=== PATIENT | male | born 1950 | race Caucasian/White ===

== ENCOUNTER 2018-12-08 10:16 | Inpatient (IN) | payer MEDICAID ==
[~2018-12-08] VITALS: Ht 162.6 cm; Wt 68.0 kg
[~2018-12-08 10:16] MED LIST: AMA1 PO; ASPI-1158 PO; BENA20TA10 PO; CALC-25 PO; CALC667C PO; FURO20TA4 PO; GEMF600T4 PO; METO25TA6 PO; NEPVIT PO; OMEP20CA10 PO; PHEN100C4 PO; REN800 PO
[2018-12-08 16:25] LABS: BASOPHILS % 0.7 % (0.0-2.0); EOSINOPHILS % 3.3 % (0.0-5.0); HEMATOCRIT. 35.9 % (42.0-52.0); HEMOGLOBIN. 11.7 g/dL (14.0-18.0); LYMPHOCYTES % 13.6 % (20.0-50.0); MEAN CORPUSCULAR VOLUME 89.2 fL (80.0-94.0); MONOCYTES % 3.5 % (2.0-8.0); NEUTROPHILS % 78.9 % (40.0-76.0); PLATELET 199 x1000/uL (130-400); RED BLOOD CELL COUNT 4.02 mill/uL (4.7-6.1); RED CELL DISTRIBUTION WIDTH 14.4 % (11.6-14.6)
[2018-12-08 16:31] LABS: CHLORIDE 98 mEq/L (98-107); PARTIAL THROMBOPLASTIN TIME 33.4 sec (23.4-31.0); PROTHROMBIN TIME 9.7 sec (9.1-11.1)
[2018-12-08] MEDS ORDERED: SODIUM POLYSTYRENE SULFONATE 15 G/60 ML BOT PO ONE (17:00)
[2018-12-08] MEDS ORDERED: ONDANSETRON HCL 4MG/2ML INJ IV PRN (19:30)
[2018-12-08] MEDS ORDERED: ACETAMINOPHEN 325MG TABLET PO PRN (19:30)
[2018-12-08] MEDS ORDERED: HYDROCODONE/ACETAMINOPHEN 5/325MG TABLET PO PRN (19:30)
[2018-12-08] MEDS ORDERED: LORAZEPAM 0.5MG TABLET PO PRN (19:30)
[2018-12-08] MEDS ORDERED: CLONIDINE 0.1MG TABLET PO PRN (19:30)
[2018-12-08] MEDS ORDERED: IPRATROPIUM/ALBUTEROL 0.5-3(2.5)MG/3ML NEB INH PRN (19:30)
[2018-12-09] VITALS (9 sets, daily range): BP systolic 102–200; BP diastolic 39–83
[2018-12-09] MEDS ORDERED: DEXTROSE 50% WATER 50ML SYRINGE IV PRN (04:45)
[2018-12-09] MEDS: PHENYTOIN SODIUM EXTENDED 100MG CAPSULE PO SCH ×4 (06:00→22:00)
[2018-12-09] MEDS: BLOOD SUGAR DIAGNOSTIC STRIP TEST SCH ×4 (08:17→21:00)
[2018-12-09] MEDS: INSULIN LISPRO 100 UNITS/ML SUBCUT SCH ×4 (08:58→21:24)
[2018-12-09 09:22] LABS: BASOPHILS % 0.6 % (0.0-2.0); EOSINOPHILS % 1.7 % (0.0-5.0); HEMATOCRIT. 34.2 % (42.0-52.0); LYMPHOCYTES % 12.4 % (20.0-50.0); MEAN CORPUSCULAR HEMOGLOBIN 28.5 pg (28.0-32.0); MEAN CORPUSCULAR VOLUME 88.7 fL (80.0-94.0); MEAN PLATELET VOLUME 8.4 fl (7.4-10.4); MONOCYTES % 3.9 % (2.0-8.0); NEUTROPHILS % 81.4 % (40.0-76.0); PLATELET 183 x1000/uL (130-400); RED BLOOD CELL COUNT 3.85 mill/uL (4.7-6.1); RED CELL DISTRIBUTION WIDTH 14.3 % (11.6-14.6)
[2018-12-09 10:19] LABS: PHOSPHORUS 3.3 mg/dL (2.5-4.9)
[2018-12-09] MEDS ORDERED: HEPARIN SODIUM 1,000 UNIT/1ML VIAL IV NR (16:09)
[2018-12-09] MEDS ORDERED: HEPARIN 5000 UNITS/ML VIAL SUBCUT SCH (21:00)
[2018-12-09] MEDS: HEPARIN 5000 UNITS/ML VIAL SUBCUT SCH (21:14)
[2018-12-10] VITALS (8 sets, daily range): BP systolic 121–149; BP diastolic 54–76
[2018-12-10] MEDS: PHENYTOIN SODIUM EXTENDED 100MG CAPSULE PO SCH ×2 (06:00→12:59)
[2018-12-10 07:08] LABS: BASOPHILS % 0.5 % (0.0-2.0); EOSINOPHILS % 2.3 % (0.0-5.0); HEMATOCRIT. 30.3 % (42.0-52.0); HEMOGLOBIN. 9.9 g/dL (14.0-18.0); LYMPHOCYTES % 13.8 % (20.0-50.0); MEAN CORPUSCULAR HEMOGLOBIN 28.9 pg (28.0-32.0); MEAN CORPUSCULAR VOLUME 88.2 fL (80.0-94.0); MEAN PLATELET VOLUME 8.5 fl (7.4-10.4); MONOCYTES % 5.2 % (2.0-8.0); NEUTROPHILS % 78.2 % (40.0-76.0); PLATELET 170 x1000/uL (130-400); RED BLOOD CELL COUNT 3.44 mill/uL (4.7-6.1); RED CELL DISTRIBUTION WIDTH 14.4 % (11.6-14.6)
[2018-12-10] MEDS: BLOOD SUGAR DIAGNOSTIC STRIP TEST SCH ×2 (07:30→12:30)
[2018-12-10] MEDS ORDERED: OMEPRAZOLE 20MG CAPSULE EXTENDED RELEASE PO SCH (07:30)
[2018-12-10] MEDS: INSULIN LISPRO 100 UNITS/ML SUBCUT SCH ×2 (08:00→13:39)
[2018-12-10] MEDS: HEPARIN 5000 UNITS/ML VIAL SUBCUT SCH (08:39)
== END 2018-12-10 17:45 | disposition home or self-care (01) | DRG 466 ==
LOC: ER 10:39 → 5EST 17:56 → ENRESERV 12-09 02:19
PROVIDERS: ADMIT Internal Medicine; ATTEND Internal Medicine
PROC: 5A1D70Z Performance of Urinary Filtration, Intermittent, Less than 6 Hours Per Day (ICD-10-PCS; principal; 2018-12-09)
PROC: 06H033Z Insertion of Infusion Device into Inferior Vena Cava, Percutaneous Approach (ICD-10-PCS; 2018-12-09)
PROC: B519ZZA Fluoroscopy of Inferior Vena Cava, Guidance (ICD-10-PCS; 2018-12-09)
PROC: 06PYX3Z Removal of Infusion Device from Lower Vein, External Approach (ICD-10-PCS; 2018-12-09)
DX: T82.898A Other specified complication of vascular prosthetic devices, implants and grafts, initial encounter (principal); I12.0 Hypertensive chronic kidney disease with stage 5 chronic kidney disease or end stage renal disease; E11.22 Type 2 diabetes mellitus with diabetic chronic kidney disease; E11.40 Type 2 diabetes mellitus with diabetic neuropathy, unspecified; N18.6 End stage renal disease; E87.1 Hypo-osmolality and hyponatremia; E78.5 Hyperlipidemia, unspecified; E87.5 Hyperkalemia; D63.8 Anemia in other chronic diseases classified elsewhere; E11.65 Type 2 diabetes mellitus with hyperglycemia; I16.0 Hypertensive urgency; G40.909 Epilepsy, unspecified, not intractable, without status epilepticus; Y83.8 Other surgical procedures as the cause of abnormal reaction of the patient, or of later complication, without mention of misadventure at the time of the procedure; Z89.512 Acquired absence of left leg below knee; Z99.2 Dependence on renal dialysis; Z87.891 Personal history of nicotine dependence; Y92.89 Other specified places as the place of occurrence of the external cause; Z88.1 Allergy status to other antibiotic agents; Z79.82 Long term (current) use of aspirin; Z79.899 Other long term (current) drug therapy; Z89.421 Acquired absence of other right toe(s); T82.41XA Breakdown (mechanical) of vascular dialysis catheter, initial encounter
CPT/HCPCS: 36415; 36569; 36581; 75825; 77001; 80048; 82962; 83036; 83735; 83880; 84100; 84484; 93005; 93970; 99285; C1750; C1769; J1642; J1644; J1815; J7620

== ENCOUNTER 2018-12-28 12:08 | Inpatient (IN) | payer MEDICAID ==
[~2018-12-28] VITALS: Ht 165.1 cm; Wt 68.5 kg
[~2018-12-28 12:08] MED LIST changes: -ASPI-1158 PO; -GEMF600T4 PO
[2018-12-28 16:41] LABS: BASOPHILS % 0.8 % (0.0-2.0); EOSINOPHILS % 3.8 % (0.0-5.0); HEMATOCRIT. 33.8 % (42.0-52.0); HEMOGLOBIN. 11.1 g/dL (14.0-18.0); LYMPHOCYTES % 17.9 % (20.0-50.0); MEAN CORPUSCULAR HEMOGLOBIN 29.2 pg (28.0-32.0); MEAN CORPUSCULAR VOLUME 88.9 fL (80.0-94.0); MEAN PLATELET VOLUME 7.8 fl (7.4-10.4); NEUTROPHILS % 72.5 % (40.0-76.0); PLATELET 202 x1000/uL (130-400); RED CELL DISTRIBUTION WIDTH 14.7 % (11.6-14.6)
[2018-12-28 16:48] LABS: CHLORIDE 99 mEq/L (98-107)
[2018-12-28 16:49] LABS: PROTHROMBIN TIME 9.9 sec (9.1-11.1)
[2018-12-28] MEDS ORDERED: IPRATROPIUM/ALBUTEROL 0.5-3(2.5)MG/3ML NEB INH PRN (19:45)
[2018-12-28] MEDS ORDERED: DOCUSATE SODIUM 100MG CAPSULE PO PRN (19:45)
[2018-12-28] MEDS ORDERED: ONDANSETRON HCL 4MG/2ML INJ IV PRN (19:45)
[2018-12-28] MEDS ORDERED: GUAIFENESIN 200MG/10ML SUGAR FREE UDC PO PRN (19:45)
[2018-12-28] MEDS ORDERED: CLONIDINE 0.1MG TABLET PO PRN (19:45)
[2018-12-28] MEDS ORDERED: ACETAMINOPHEN 325MG TABLET PO PRN (19:45)
[2018-12-28] MEDS ORDERED: DIPHENHYDRAMINE 50MG/ML VIAL IV PRN (19:45)
[2018-12-28] MEDS ORDERED: MAGNESIUM/ALUMINUM HYDROXIDE/SIMETHICONE 30ML UDC PO PRN (19:45)
[2018-12-28] MEDS ORDERED: HYDROCODONE/ACETAMINOPHEN 5/325MG TABLET PO PRN (19:45)
[2018-12-28 20:27] LABS: PHOSPHORUS 7.7 mg/dL (2.5-4.9)
[2018-12-28 20:57] LABS: HEPATITIS B SURFACE ANTIGEN NEGATIVE
[2018-12-28 21:27] LABS: HEPATITIS A AB IGM NEGATIVE (NEGATIVE)
[2018-12-28 23:20] VITALS: BP 151/55
[2018-12-28 23:21] VITALS: BP 151/55
[2018-12-29] VITALS (20 sets, daily range): BP systolic 134–207; BP diastolic 58–82
[2018-12-29] MEDS ORDERED: CLON0.1T PO (01:50)
[2018-12-29] MEDS ORDERED: DEXTROSE 50% WATER 50ML SYRINGE IV PRN (02:00)
[2018-12-29] MEDS: BLOOD SUGAR DIAGNOSTIC STRIP TEST SCH ×2 (06:16→13:02)
[2018-12-29] MEDS: INSULIN LISPRO 100 UNITS/ML SUBCUT SCH ×2 (07:03→13:11)
[2018-12-29] MEDS ORDERED: CEFAZOLIN 1000MG PREMIX 50 ML IV ONE ×2 (07:37→07:45)
[2018-12-29] MEDS ORDERED: SODIUM BICARBONATE 4% (2.4MEQ) 5ML VIAL IV ONE (07:37)
[2018-12-29] MEDS ORDERED: LIDOCAINE HCL 1% 20ML VIAL (Pyxis) INJ ONE (07:37)
[2018-12-29] MEDS ORDERED: FENTANYL CITRATE/PF 50MCG/ML 2ML VIAL ONE ×2 (07:38→09:06)
[2018-12-29 07:42] LABS: BASOPHILS % 1.3 % (0.0-2.0); EOSINOPHILS % 5.6 % (0.0-5.0); HEMATOCRIT. 33.1 % (42.0-52.0); HEMOGLOBIN. 10.6 g/dL (14.0-18.0); LYMPHOCYTES % 21.2 % (20.0-50.0); MEAN CORPUSCULAR HEMOGLOBIN 29.1 pg (28.0-32.0); MEAN CORPUSCULAR VOLUME 90.4 fL (80.0-94.0); MEAN PLATELET VOLUME 8.1 fl (7.4-10.4); MONOCYTES % 5.7 % (2.0-8.0); NEUTROPHILS % 66.2 % (40.0-76.0); PLATELET 186 x1000/uL (130-400); RED BLOOD CELL COUNT 3.66 mill/uL (4.7-6.1); RED CELL DISTRIBUTION WIDTH 14.9 % (11.6-14.6)
[2018-12-29 08:18] LABS: CHLORIDE 100 mEq/L (98-107)
[2018-12-29 08:25] LABS: LDL CHOLESTEROL 69 mg/dL (5-100)
[2018-12-29 08:27] LABS: HDL CHOLESTEROL 37 mg/dL (40-59)
[2018-12-29] MEDS ORDERED: IOHEXOL-300 50 ML BOTTLE IV ONE (08:41)
[2018-12-29] MEDS ORDERED: FENTANYL CITRATE/PF 50MCG/ML 2ML VIAL IV ONE (08:45)
[2018-12-29] MEDS ORDERED: CALCIUM ACETATE 667MG CAPSULE PO SCH (13:00)
[2018-12-29] MEDS ORDERED: EPOETIN ALFA 4000UNITS/ML VIAL SUBCUT SCH (21:00)
[2018-12-30 08:18] LABS: HIV SCREEN 4G Non Reactive (Non Reactive)
== END 2018-12-29 20:05 | disposition home or self-care (01) | DRG 182 ==
LOC: ER 12:08 → 8WST 17:36 → EDBEDREQTM 17:40 → EDBEDREQ 17:40 → ENRESERV 22:33
PROVIDERS: ADMIT Internal Medicine; ATTEND Internal Medicine
PROC: B5191ZZ Fluoroscopy of Inferior Vena Cava using Low Osmolar Contrast (ICD-10-PCS; principal; 2018-12-29)
PROC: 06703ZZ Dilation of Inferior Vena Cava, Percutaneous Approach (ICD-10-PCS; 2018-12-29)
PROC: B51V1ZZ Fluoroscopy of Other Veins using Low Osmolar Contrast (ICD-10-PCS; 2018-12-29)
PROC: 067M3ZZ Dilation of Right Femoral Vein, Percutaneous Approach (ICD-10-PCS; 2018-12-29)
PROC: 5A1D70Z Performance of Urinary Filtration, Intermittent, Less than 6 Hours Per Day (ICD-10-PCS; 2018-12-29)
PROC: 06HM33Z Insertion of Infusion Device into Right Femoral Vein, Percutaneous Approach (ICD-10-PCS; 2018-12-29)
PROC: 06PYX3Z Removal of Infusion Device from Lower Vein, External Approach (ICD-10-PCS; 2018-12-29)
DX: T82.9XXA Unspecified complication of cardiac and vascular prosthetic device, implant and graft, initial encounter (principal); E11.22 Type 2 diabetes mellitus with diabetic chronic kidney disease; I12.0 Hypertensive chronic kidney disease with stage 5 chronic kidney disease or end stage renal disease; T82.818A Embolism due to vascular prosthetic devices, implants and grafts, initial encounter; N18.6 End stage renal disease; Y83.8 Other surgical procedures as the cause of abnormal reaction of the patient, or of later complication, without mention of misadventure at the time of the procedure; D64.9 Anemia, unspecified; E78.00 Pure hypercholesterolemia, unspecified; Z79.4 Long term (current) use of insulin; Z89.512 Acquired absence of left leg below knee; Z99.2 Dependence on renal dialysis; Y92.89 Other specified places as the place of occurrence of the external cause; Z88.1 Allergy status to other antibiotic agents
CPT/HCPCS: 36415; 36569; 36589; 37248; 71045; 75825; 76937; 77001; 80061; 82962; 83036; 83735; 84100; 84443; 86705; 86709; 86803; 87070; 87186; 87340; 87389; 93970; 99152; 99153; 99285; C1725; C1766; C1769; J0690; J1642; J1815; J3010; J3490; J7050; Q9967; G0500

== ENCOUNTER 2019-03-12 10:25 | Inpatient (IN) | payer MEDICAID ==
[~2019-03-12] VITALS: Ht 165.1 cm; Wt 75.4 kg
[~2019-03-12 10:25] MED LIST changes: -AMA1 PO; +CLON0.1T PO; -FURO20TA4 PO; -METO25TA6 PO; -NEPVIT PO; -OMEP20CA10 PO; -PHEN100C4 PO; -REN800 PO
[2019-03-12 13:25] LABS: BASOPHILS % 0.6 % (0.0-2.0); EOSINOPHILS % 2.8 % (0.0-5.0); HEMOGLOBIN. 12.1 g/dL (14.0-18.0); MEAN CORPUSCULAR HEMOGLOBIN 29.5 pg (28.0-32.0); MEAN CORPUSCULAR VOLUME 90.3 fL (80.0-94.0); MONOCYTES % 4.2 % (2.0-8.0); NEUTROPHILS % 82.4 % (40.0-76.0); PLATELET 209 x1000/uL (130-400); RED CELL DISTRIBUTION WIDTH 17.9 % (11.6-14.6)
[2019-03-12 13:30] LABS: CHLORIDE 104 mEq/L (98-107); PROTHROMBIN TIME 10.1 sec (9.6-11.0)
[2019-03-12 13:37] LABS: PHOSPHORUS 4.8 mg/dL (2.5-4.9)
[2019-03-12] MEDS ORDERED: SODIUM BICARBONATE 4% (2.4MEQ) 5ML VIAL IV ONE (13:39)
[2019-03-12] MEDS ORDERED: LIDOCAINE HCL 1% 20ML VIAL (Pyxis) INJ ONE (13:39)
[2019-03-12] MEDS ORDERED: CALCIUM GLUCONATE 1,000 MG in DEXT 5% WATER 100 ML IV ONE (14:30)
[2019-03-12] MEDS ORDERED: SODIUM BICARBONATE 8.4% 1 MEQ/ML 50ML SYR IV ONE (14:30)
[2019-03-12] MEDS ORDERED: FUROSEMIDE 100MG/10ML VIAL IV ONE (14:30)
[2019-03-12] MEDS ORDERED: DEXTROSE 50% WATER 50ML SYRINGE IV ONE (14:30)
[2019-03-12] MEDS ORDERED: INSULIN REGULAR (HUMULIN R) 300UNITS/3ML IV ONE (14:30)
[2019-03-12] MEDS ORDERED: ALBUTEROL (0.083%) 2.5MG/3ML NEB HHN SCH (14:30)
[2019-03-12] MEDS ORDERED: ACETAMINOPHEN 325MG TABLET PO ONE (15:15)
[2019-03-12] MEDS ORDERED: DOCUSATE SODIUM 100MG CAPSULE PO PRN (16:45)
[2019-03-12] MEDS ORDERED: MAGNESIUM/ALUMINUM HYDROXIDE/SIMETHICONE 30ML UDC PO PRN (16:45)
[2019-03-12] MEDS ORDERED: IPRATROPIUM/ALBUTEROL 0.5-3(2.5)MG/3ML NEB INH PRN (16:45)
[2019-03-12] MEDS ORDERED: HYDROCODONE/ACETAMINOPHEN 5/325MG TABLET PO PRN (16:45)
[2019-03-12] MEDS ORDERED: ONDANSETRON HCL 4MG/2ML INJ IV PRN (16:45)
[2019-03-12] MEDS ORDERED: DIPHENHYDRAMINE 50MG/ML VIAL IV PRN (16:45)
[2019-03-12] MEDS ORDERED: GUAIFENESIN 200MG/10ML SUGAR FREE UDC PO PRN (16:45)
[2019-03-12 17:22] LABS: PHOSPHORUS 5.1 mg/dL (2.5-4.9)
[2019-03-12] MEDS: CLONIDINE 0.1MG TABLET PO PRN (20:47)
[2019-03-13] VITALS (13 sets, daily range): BP systolic 138–206; BP diastolic 52–91
[2019-03-13 00:10] LABS: CREATINE KINASE MB FRACTION 5.3 ng/mL (0.5-3.6)
[2019-03-13] MEDS ORDERED: DEXTROSE 50% WATER 50ML SYRINGE IV PRN (04:30)
[2019-03-13 06:06] LABS: BASOPHILS % 0.7 % (0.0-2.0); EOSINOPHILS % 2.8 % (0.0-5.0); HEMATOCRIT. 38.1 % (42.0-52.0); HEMOGLOBIN. 12.2 g/dL (14.0-18.0); LYMPHOCYTES % 9.1 % (20.0-50.0); MEAN CORPUSCULAR HEMOGLOBIN 29.2 pg (28.0-32.0); MEAN CORPUSCULAR VOLUME 91.4 fL (80.0-94.0); MONOCYTES % 4.2 % (2.0-8.0); NEUTROPHILS % 83.2 % (40.0-76.0); RED BLOOD CELL COUNT 4.17 mill/uL (4.7-6.1); RED CELL DISTRIBUTION WIDTH 17.7 % (11.6-14.6)
[2019-03-13 06:43] LABS: CHLORIDE 104 mEq/L (98-107)
[2019-03-13 07:03] LABS: CREATINE KINASE 165 IU/L (39-308); HDL CHOLESTEROL 64 mg/dL (40-59)
[2019-03-13 07:05] LABS: LDL CHOLESTEROL 34 mg/dL (5-100)
[2019-03-13] MEDS: BLOOD SUGAR DIAGNOSTIC STRIP TEST SCH ×4 (07:40→23:18)
[2019-03-13] MEDS ORDERED: SODIUM BICARBONATE 4% (2.4MEQ) 5ML VIAL IV ONE (08:07)
[2019-03-13] MEDS ORDERED: LIDOCAINE HCL 1% 20ML VIAL (Pyxis) INJ ONE (08:07)
[2019-03-13] MEDS ORDERED: FENTANYL CITRATE/PF 50MCG/ML 2ML VIAL ONE (08:08)
[2019-03-13] MEDS: INSULIN LISPRO 100 UNITS/ML SUBCUT SCH ×4 (08:10→23:18)
[2019-03-13] MEDS ORDERED: CEFAZOLIN 1000MG PREMIX 50 ML IV SCH (08:15)
[2019-03-13] MEDS ORDERED: IOHEXOL-300 50 ML BOTTLE IV ONE (08:45)
[2019-03-13] MEDS ORDERED: INSULIN REGULAR (HUMULIN R) UD 100 UNITS/ML SYR IV SCH (10:00)
[2019-03-13] MEDS ORDERED: DEXTROSE 50% WATER 50ML SYRINGE IV SCH (10:00)
[2019-03-13] MEDS: ACETAMINOPHEN 325MG TABLET PO PRN (10:33)
[2019-03-13 11:19] LABS: PLATELET 175 x1000/uL (130-400)
[2019-03-14] VITALS: BP 139/56
[2019-03-14 04:00] VITALS: BP 145/54
[2019-03-14 06:45] LABS: BASOPHILS % 1.3 % (0.0-2.0); EOSINOPHILS % 2.9 % (0.0-5.0); HEMATOCRIT. 32.9 % (42.0-52.0); HEMOGLOBIN. 10.6 g/dL (14.0-18.0); LYMPHOCYTES % 10.9 % (20.0-50.0); MEAN CORPUSCULAR HEMOGLOBIN 29.3 pg (28.0-32.0); MEAN CORPUSCULAR VOLUME 90.9 fL (80.0-94.0); MEAN PLATELET VOLUME 7.8 fl (7.4-10.4); MONOCYTES % 5.5 % (2.0-8.0); NEUTROPHILS % 79.4 % (40.0-76.0); PLATELET 159 x1000/uL (130-400); RED BLOOD CELL COUNT 3.62 mill/uL (4.7-6.1); RED CELL DISTRIBUTION WIDTH 17.8 % (11.6-14.6)
[2019-03-14] MEDS: BLOOD SUGAR DIAGNOSTIC STRIP TEST SCH ×4 (06:57→21:28)
[2019-03-14] MEDS: INSULIN LISPRO 100 UNITS/ML SUBCUT SCH ×4 (07:02→21:59)
[2019-03-14 08:00] VITALS: BP 141/59
[2019-03-14 12:00] VITALS: BP 155/81
[2019-03-14 16:00] VITALS: BP 172/75
[2019-03-14] MEDS ORDERED: SODIUM POLYSTYRENE SULFONATE 15 G/60 ML BOT PO NR (16:30)
[2019-03-14] MEDS: ACETAMINOPHEN 325MG TABLET PO PRN (17:12)
[2019-03-14] MEDS: CLONIDINE 0.1MG TABLET PO PRN (18:17)
[2019-03-14 20:28] VITALS: BP 143/54
[2019-03-15] VITALS (8 sets, daily range): BP systolic 116–169; BP diastolic 40–71
[2019-03-15] MEDS: ACETAMINOPHEN 325MG TABLET PO PRN ×2 (00:53→23:19)
[2019-03-15] MEDS: BLOOD SUGAR DIAGNOSTIC STRIP TEST SCH ×4 (07:40→21:00)
[2019-03-15] MEDS: INSULIN LISPRO 100 UNITS/ML SUBCUT SCH ×4 (08:10→21:00)
[2019-03-15] MEDS ORDERED: LIDOCAINE HCL/PF 1% 10 MG/ML 5ML VIAL ONE (10:29)
[2019-03-15] MEDS ORDERED: CEFAZOLIN 1000MG PREMIX 50 ML IV NR (10:30)
[2019-03-15] MEDS ORDERED: LIDOCAINE HCL/EPINEPHRINE 1%-EPI 1:100,000 20 ML VIAL ONE (10:30)
[2019-03-15] MEDS ORDERED: LIDOCAINE HCL 1% 20ML VIAL (Pyxis) INJ ONE (10:31)
[2019-03-15] MEDS ORDERED: SODIUM BICARBONATE 4% (2.4MEQ) 5ML VIAL IV ONE (10:32)
[2019-03-15] MEDS ORDERED: CEFAZOLIN 1000MG PREMIX 50 ML IV ONE (10:53)
[2019-03-15] MEDS ORDERED: FENTANYL CITRATE/PF 50MCG/ML 2ML VIAL ONE (10:53)
[2019-03-15] MEDS ORDERED: IOHEXOL-300 100 ML BOTTLE ONE (10:58)
[2019-03-15] MEDS ORDERED: HEPARIN 1000 UNITS/ML 10ML ONE (11:29)
[2019-03-15] MEDS ORDERED: IOHEXOL-300 50 ML BOTTLE IV ONE (12:25)
[2019-03-16] VITALS (8 sets, daily range): BP systolic 95–193; BP diastolic 33–69
[2019-03-16] MEDS: BLOOD SUGAR DIAGNOSTIC STRIP TEST SCH ×4 (07:12→20:45)
[2019-03-16] MEDS: INSULIN LISPRO 100 UNITS/ML SUBCUT SCH ×4 (08:10→20:45)
[2019-03-16] MEDS: ACETAMINOPHEN 325MG TABLET PO PRN ×2 (09:13→23:37)
[2019-03-16] MEDS ORDERED: ALTEPLASE 100MG/VIAL ITC ONE ×2 (10:15)
[2019-03-16] MEDS ORDERED: ALTEPLASE 2MG/VIAL ITC SCH (11:00)
[2019-03-16] MEDS ORDERED: GENTAMICIN 80MG PREMIX 100 ML IV NR (18:00)
[2019-03-17] VITALS: BP 100/35
[2019-03-17 04:00] VITALS: BP 110/38
[2019-03-17 05:45] LABS: HEMATOCRIT. 27.8 % (42.0-52.0); MEAN CORPUSCULAR HEMOGLOBIN 28.9 pg (28.0-32.0); MEAN CORPUSCULAR VOLUME 89.6 fL (80.0-94.0); MEAN PLATELET VOLUME 9.5 fl (7.4-10.4); PLATELET 103 x1000/uL (130-400); RED CELL DISTRIBUTION WIDTH 17.4 % (11.6-14.6)
[2019-03-17] MEDS: BLOOD SUGAR DIAGNOSTIC STRIP TEST SCH ×4 (07:40→20:25)
[2019-03-17 08:00] VITALS: BP 126/35
[2019-03-17] MEDS: INSULIN LISPRO 100 UNITS/ML SUBCUT SCH ×4 (08:10→20:25)
[2019-03-17 12:00] VITALS: BP 137/38
[2019-03-17] MEDS: ACETAMINOPHEN 325MG TABLET PO PRN (13:17)
[2019-03-17 13:26] LABS: PLATELET ESTIMATE SLIGHTLY DECREASED
[2019-03-17 16:00] VITALS: BP 114/34
[2019-03-17 20:00] VITALS: BP 123/40
[2019-03-18] VITALS: BP 126/45
[2019-03-18 04:00] VITALS: BP 123/49
[2019-03-18] MEDS ORDERED: CEFEPIME 1,000 MG in DEXTROSE 5% WATER 50 ML IV NR (05:00)
[2019-03-18] MEDS: METRONIDAZOLE 500 MG PREMIX 100 ML IV SCH ×2 (05:26→21:34)
[2019-03-18 06:58] LABS: BASOPHILS % 0.4 % (0.0-2.0); EOSINOPHILS % 0.4 % (0.0-5.0); HEMATOCRIT. 26.2 % (42.0-52.0); HEMOGLOBIN. 8.5 g/dL (14.0-18.0); LYMPHOCYTES % 7.7 % (20.0-50.0); MEAN CORPUSCULAR HEMOGLOBIN 28.9 pg (28.0-32.0); MEAN CORPUSCULAR VOLUME 89.6 fL (80.0-94.0); MEAN PLATELET VOLUME 9.4 fl (7.4-10.4); MONOCYTES % 5.6 % (2.0-8.0); NEUTROPHILS % 85.9 % (40.0-76.0); PLATELET 110 x1000/uL (130-400); RED BLOOD CELL COUNT 2.93 mill/uL (4.7-6.1); RED CELL DISTRIBUTION WIDTH 17.1 % (11.6-14.6)
[2019-03-18 07:29] LABS: GENTAMICIN RANDOM 2.2 ug/mL
[2019-03-18 08:00] VITALS: BP 96/39
[2019-03-18] MEDS: BLOOD SUGAR DIAGNOSTIC STRIP TEST SCH ×4 (08:33→21:35)
[2019-03-18] MEDS: INSULIN LISPRO 100 UNITS/ML SUBCUT SCH ×4 (08:40→21:00)
[2019-03-18] MEDS ORDERED: CEFEPIME 2,000 MG in DEXT 5% WATER 100 ML IV SCH (09:00)
[2019-03-18] MEDS ORDERED: LOPERAMIDE HCL 2MG CAPSULE PO PRN (10:45)
[2019-03-18 12:00] VITALS: BP 121/34
[2019-03-18] MEDS ORDERED: LOPERAMIDE HCL 2MG CAPSULE PO NR (12:00)
[2019-03-18 16:00] VITALS: BP 116/35
[2019-03-18] MEDS: CEFTRIAXONE 2 G in DEXTROSE 5% WATER 50 ML IV SCH (16:11)
[2019-03-18 20:00] VITALS: BP 114/36
[2019-03-18] MEDS: ACETAMINOPHEN 325MG TABLET PO PRN (21:46)
[2019-03-19] VITALS: BP 123/50
[2019-03-19 04:00] VITALS: BP 122/44
[2019-03-19] MEDS: BLOOD SUGAR DIAGNOSTIC STRIP TEST SCH ×4 (05:55→21:00)
[2019-03-19 06:31] LABS: HEMATOCRIT. 31.5 % (42.0-52.0); HEMOGLOBIN. 10.2 g/dL (14.0-18.0); MEAN CORPUSCULAR VOLUME 89.9 fL (80.0-94.0); MEAN PLATELET VOLUME 9.4 fl (7.4-10.4); PLATELET 156 x1000/uL (130-400); RED BLOOD CELL COUNT 3.51 mill/uL (4.7-6.1); RED CELL DISTRIBUTION WIDTH 17.2 % (11.6-14.6)
[2019-03-19 08:00] VITALS: BP 127/34
[2019-03-19] MEDS ORDERED: CEFEPIME 500 MG in DEXTROSE 5% WATER 50 ML IV SCH (08:00)
[2019-03-19] MEDS: INSULIN LISPRO 100 UNITS/ML SUBCUT SCH ×4 (08:48→21:00)
[2019-03-19] MEDS: METRONIDAZOLE 500 MG PREMIX 100 ML IV SCH ×2 (08:49→22:05)
[2019-03-19] MEDS ORDERED: ALTEPLASE 2MG/VIAL ITC NR (11:45)
[2019-03-19 12:00] VITALS: BP 136/72
[2019-03-19] MEDS: CEFTRIAXONE 2 G in DEXTROSE 5% WATER 50 ML IV SCH (12:10)
[2019-03-19] MEDS: ACETAMINOPHEN 325MG TABLET PO PRN ×2 (12:11→22:35)
[2019-03-19 16:00] VITALS: BP 97/41
[2019-03-19 18:13] LABS: PLATELET ESTIMATE NORMAL
[2019-03-19 20:00] VITALS: BP 102/36
[2019-03-20] VITALS: BP 93/30
[2019-03-20 04:00] VITALS: BP 102/31
[2019-03-20 06:43] LABS: HEMATOCRIT. 27.1 % (42.0-52.0); HEMOGLOBIN. 8.8 g/dL (14.0-18.0); MEAN CORPUSCULAR VOLUME 89.1 fL (80.0-94.0); MEAN PLATELET VOLUME 9.4 fl (7.4-10.4); PLATELET 163 x1000/uL (130-400); RED BLOOD CELL COUNT 3.04 mill/uL (4.7-6.1)
[2019-03-20] MEDS: BLOOD SUGAR DIAGNOSTIC STRIP TEST SCH ×4 (07:00→21:00)
[2019-03-20 08:00] VITALS: BP 111/37
[2019-03-20] MEDS: INSULIN LISPRO 100 UNITS/ML SUBCUT SCH ×3 (08:18→18:10)
[2019-03-20] MEDS: METRONIDAZOLE 500 MG PREMIX 100 ML IV SCH ×2 (09:29→21:00)
[2019-03-20] MEDS: CEFTRIAXONE 2 G in DEXTROSE 5% WATER 50 ML IV SCH (11:48)
[2019-03-20 12:00] VITALS: BP 102/26
[2019-03-20 13:41] LABS: PLATELET ESTIMATE NORMAL
[2019-03-20 16:00] VITALS: BP 85/37
[2019-03-20 20:00] VITALS: BP 96/47
[2019-03-21] VITALS: BP 107/58
[2019-03-21 04:00] VITALS: BP 107/48
[2019-03-21] MEDS: INSULIN LISPRO 100 UNITS/ML SUBCUT SCH ×5 (04:13→21:00)
[2019-03-21] MEDS: BLOOD SUGAR DIAGNOSTIC STRIP TEST SCH ×4 (07:40→21:00)
[2019-03-21] MEDS: METRONIDAZOLE 500 MG PREMIX 100 ML IV SCH ×2 (09:00→22:29)
[2019-03-21] MEDS: CEFTRIAXONE 2 G in DEXTROSE 5% WATER 50 ML IV SCH (09:00)
[2019-03-21 12:00] VITALS: BP 108/36
[2019-03-21] MEDS ORDERED: LEVOFLOXACIN 750MG PREMIX 150 ML IV SCH ×2 (14:15→16:00)
[2019-03-21 16:00] VITALS: BP 89/35
[2019-03-21 20:00] VITALS: BP 137/29
[2019-03-22] VITALS: BP 100/28
[2019-03-22 04:00] VITALS: BP 111/75
[2019-03-22] MEDS: BLOOD SUGAR DIAGNOSTIC STRIP TEST SCH ×4 (06:06→22:06)
[2019-03-22 06:49] LABS: BASOPHILS % 0.7 % (0.0-2.0); EOSINOPHILS % 5.1 % (0.0-5.0); HEMATOCRIT. 24.5 % (42.0-52.0); HEMOGLOBIN. 7.9 g/dL (14.0-18.0); LYMPHOCYTES % 8.2 % (20.0-50.0); MEAN CORPUSCULAR VOLUME 89.8 fL (80.0-94.0); MEAN PLATELET VOLUME 8.5 fl (7.4-10.4); MONOCYTES % 5.9 % (2.0-8.0); NEUTROPHILS % 80.1 % (40.0-76.0); PLATELET 212 x1000/uL (130-400); RED BLOOD CELL COUNT 2.72 mill/uL (4.7-6.1)
[2019-03-22 08:00] VITALS: BP 114/29
[2019-03-22] MEDS: INSULIN LISPRO 100 UNITS/ML SUBCUT SCH ×4 (08:10→22:17)
[2019-03-22] MEDS: METRONIDAZOLE 500 MG PREMIX 100 ML IV SCH ×2 (09:10→22:06)
[2019-03-22 12:00] VITALS: BP 128/25
[2019-03-22] MEDS ORDERED: SODIUM BICARBONATE 4% (2.4MEQ) 5ML VIAL IV ONE (14:05)
[2019-03-22] MEDS ORDERED: LIDOCAINE HCL 1% 20ML VIAL (Pyxis) INJ ONE ×2 (14:05→15:51)
[2019-03-22] MEDS ORDERED: BACITRACIN 50,000 UNITS/VIAL ONE (14:32)
[2019-03-22] MEDS ORDERED: BUPIVACAINE HCL/PF 0.5% (5MG/ML) 10ML ONE (14:38)
[2019-03-22] MEDS ORDERED: IOHEXOL-300 100 ML BOTTLE ONE (15:19)
[2019-03-22 16:00] VITALS: BP 132/92
[2019-03-22] MEDS ORDERED: ONDANSETRON HCL 4MG/2ML INJ ONE (16:26)
[2019-03-22] MEDS ORDERED: PROPOFOL 200MG/20ML VIAL IV ONE (16:26)
[2019-03-22] MEDS ORDERED: DEXAMETHASONE 4MG/ML 1ML VIAL ONE (16:26)
[2019-03-22] MEDS ORDERED: FENTANYL CITRATE/PF 50MCG/ML 2ML VIAL ONE (16:26)
[2019-03-22] MEDS ORDERED: MIDAZOLAM HCL 2 MG/2 ML VIAL ONE (16:26)
[2019-03-22] MEDS ORDERED: LABETALOL 5MG/ML SYR 20 MG/4 ML SYRINGE IV PRN (17:15)
[2019-03-22] MEDS ORDERED: ONDANSETRON HCL 4MG/2ML INJ IV PRN (17:15)
[2019-03-22] MEDS ORDERED: HYDROMORPHONE HCL/PF 2MG/ML CPJ IV PRN (17:15)
[2019-03-22] MEDS ORDERED: MEPERIDINE HCL/PF 25MG/ML CPJ IV PRN (17:15)
[2019-03-22] MEDS ORDERED: MORPHINE SULFATE 4 MG/ML CPJ (NOT FOR IM USE) IV PRN (18:00)
[2019-03-22 20:00] VITALS: BP 92/31
[2019-03-23] VITALS: BP 126/43
[2019-03-23 04:00] VITALS: BP 140/35
[2019-03-23] MEDS: BLOOD SUGAR DIAGNOSTIC STRIP TEST SCH ×4 (06:06→21:00)
[2019-03-23 07:13] LABS: HEMATOCRIT. 27.4 % (42.0-52.0); HEMOGLOBIN. 8.8 g/dL (14.0-18.0); MEAN CORPUSCULAR VOLUME 90.6 fL (80.0-94.0); MEAN PLATELET VOLUME 8.6 fl (7.4-10.4); PLATELET 283 x1000/uL (130-400); RED BLOOD CELL COUNT 3.02 mill/uL (4.7-6.1); RED CELL DISTRIBUTION WIDTH 16.9 % (11.6-14.6)
[2019-03-23] MEDS: INSULIN LISPRO 100 UNITS/ML SUBCUT SCH ×4 (07:29→20:59)
[2019-03-23 08:00] VITALS: BP 150/44
[2019-03-23] MEDS: METRONIDAZOLE 500 MG PREMIX 100 ML IV SCH ×2 (09:14→20:59)
[2019-03-23 10:16] LABS: PLATELET ESTIMATE NORMAL
[2019-03-23] MEDS ORDERED: LEVOFLOXACIN 500MG PREMIX 100 ML IV SCH (11:00)
[2019-03-23 12:00] VITALS: BP 146/60
[2019-03-23 16:00] VITALS: BP 131/39
[2019-03-23 20:24] VITALS: BP 130/30
[2019-03-24] VITALS: BP 134/33
[2019-03-24 04:00] VITALS: BP 132/36
[2019-03-24] MEDS: BLOOD SUGAR DIAGNOSTIC STRIP TEST SCH ×4 (05:37→21:00)
[2019-03-24 06:06] LABS: HEMOGLOBIN. 7.7 g/dL (14.0-18.0); MEAN CORPUSCULAR HEMOGLOBIN 28.9 pg (28.0-32.0); MEAN CORPUSCULAR VOLUME 89.8 fL (80.0-94.0); MEAN PLATELET VOLUME 8.1 fl (7.4-10.4); PLATELET 288 x1000/uL (130-400); RED BLOOD CELL COUNT 2.67 mill/uL (4.7-6.1); RED CELL DISTRIBUTION WIDTH 17.4 % (11.6-14.6)
[2019-03-24 06:39] LABS: PHOSPHORUS 8.7 mg/dL (2.5-4.9)
[2019-03-24 08:00] VITALS: BP 141/43
[2019-03-24] MEDS: INSULIN LISPRO 100 UNITS/ML SUBCUT SCH ×4 (08:28→23:00)
[2019-03-24] MEDS: METRONIDAZOLE 500 MG PREMIX 100 ML IV SCH ×2 (08:29→22:47)
[2019-03-24 10:26] LABS: PLATELET ESTIMATE NORMAL
[2019-03-24 12:00] VITALS: BP 138/44
[2019-03-24 16:00] VITALS: BP 130/30
[2019-03-24] MEDS: ACETAMINOPHEN 325MG TABLET PO PRN (17:01)
[2019-03-24 20:00] VITALS: BP 142/51
[2019-03-24] MEDS ORDERED: ALTEPLASE 2MG/VIAL ITC SCH (21:30)
[2019-03-24] MEDS: INSULIN GLARGINE UD 100 UNITS/ML SYR SUBCUT SCH (23:01)
[2019-03-25] VITALS: BP 116/55
[2019-03-25] MEDS: LEVOFLOXACIN 250MG TABLET PO SCH (07:14)
[2019-03-25] MEDS: INSULIN LISPRO 100 UNITS/ML SUBCUT SCH ×4 (07:15→21:53)
[2019-03-25] MEDS: BLOOD SUGAR DIAGNOSTIC STRIP TEST SCH ×4 (07:15→21:16)
[2019-03-25 07:47] LABS: BASOPHILS % 0.2 % (0.0-2.0); EOSINOPHILS % 2.2 % (0.0-5.0); HEMATOCRIT. 23.3 % (42.0-52.0); HEMOGLOBIN. 7.6 g/dL (14.0-18.0); LYMPHOCYTES % 11.7 % (20.0-50.0); MEAN CORPUSCULAR HEMOGLOBIN 29.2 pg (28.0-32.0); MEAN CORPUSCULAR VOLUME 89.9 fL (80.0-94.0); MEAN PLATELET VOLUME 8.1 fl (7.4-10.4); MONOCYTES % 6.3 % (2.0-8.0); NEUTROPHILS % 79.6 % (40.0-76.0); PLATELET 245 x1000/uL (130-400)
[2019-03-25 08:00] VITALS: BP 106/48
[2019-03-25] MEDS: INSULIN GLARGINE UD 100 UNITS/ML SYR SUBCUT SCH ×2 (09:02→21:58)
[2019-03-25 12:00] VITALS: BP 130/37
[2019-03-25 16:00] VITALS: BP 135/45
[2019-03-25 20:22] VITALS: BP 108/54
[2019-03-26 00:41] VITALS: BP 96/42
[2019-03-26 04:40] VITALS: BP 119/43
[2019-03-26] MEDS: BLOOD SUGAR DIAGNOSTIC STRIP TEST SCH ×4 (06:58→21:39)
[2019-03-26] MEDS: INSULIN LISPRO 100 UNITS/ML SUBCUT SCH ×4 (07:50→21:46)
[2019-03-26 08:00] VITALS: BP 110/36
[2019-03-26] MEDS: INSULIN GLARGINE UD 100 UNITS/ML SYR SUBCUT SCH ×2 (10:06→21:41)
[2019-03-26 12:00] VITALS: BP 92/25
[2019-03-26] MEDS: SEVELAMER CARBONATE 800 MG TABLET PO SCH ×2 (12:52→16:54)
[2019-03-26] MEDS: CITRIC ACID/SODIUM CITRATE SOLN 30ML UDC PO SCH ×2 (12:52→16:54)
[2019-03-26 16:00] VITALS: BP 113/38
[2019-03-26 20:12] VITALS: BP 134/88
[2019-03-27] VITALS (12 sets, daily range): BP systolic 93–132; BP diastolic 19–80
[2019-03-27] MEDS: LEVOFLOXACIN 250MG TABLET PO SCH (05:07)
[2019-03-27] MEDS: BLOOD SUGAR DIAGNOSTIC STRIP TEST SCH ×4 (07:00→21:11)
[2019-03-27 07:06] LABS: HEMATOCRIT. 23.4 % (42.0-52.0); HEMOGLOBIN. 7.7 g/dL (14.0-18.0); MEAN CORPUSCULAR HEMOGLOBIN 29.2 pg (28.0-32.0); MEAN PLATELET VOLUME 8.1 fl (7.4-10.4); PLATELET 236 x1000/uL (130-400); RED BLOOD CELL COUNT 2.62 mill/uL (4.7-6.1)
[2019-03-27] MEDS: INSULIN LISPRO 100 UNITS/ML SUBCUT SCH ×4 (07:50→21:00)
[2019-03-27] MEDS: CITRIC ACID/SODIUM CITRATE SOLN 30ML UDC PO SCH ×3 (08:25→17:17)
[2019-03-27] MEDS: SEVELAMER CARBONATE 800 MG TABLET PO SCH ×3 (08:25→17:17)
[2019-03-27 09:00] LABS: PLATELET ESTIMATE NORMAL
[2019-03-27] MEDS ORDERED: IOHEXOL-300 50 ML BOTTLE IV ONE (09:49)
[2019-03-27] MEDS ORDERED: LIDOCAINE HCL 1% 20ML VIAL (Pyxis) INJ ONE (09:49)
[2019-03-27] MEDS ORDERED: SODIUM BICARBONATE 4% (2.4MEQ) 5ML VIAL IV ONE (09:49)
[2019-03-27] MEDS ORDERED: HEPARIN 1000 UNITS/ML 10ML ONE (09:49)
[2019-03-27] MEDS: INSULIN GLARGINE UD 100 UNITS/ML SYR SUBCUT SCH ×2 (10:00→21:11)
[2019-03-27] MEDS ORDERED: CEFAZOLIN 1000MG PREMIX 50 ML IV ONE (10:50)
[2019-03-27] MEDS ORDERED: FENTANYL CITRATE/PF 50MCG/ML 2ML VIAL ONE (10:50)
[2019-03-27] MEDS ORDERED: MIDAZOLAM HCL 2 MG/2 ML VIAL ONE (10:50)
[2019-03-27] MEDS ORDERED: MIDAZOLAM HCL 5 MG/5 ML VIAL IV ONE (11:30)
[2019-03-27] MEDS ORDERED: FENTANYL CITRATE/PF 50MCG/ML 2ML VIAL IV ONE ×2 (11:30)
[2019-03-27] MEDS ORDERED: MIDAZOLAM HCL 2 MG/2 ML VIAL IV ONE (12:00)
[2019-03-27] MEDS ORDERED: SODIUM CHLORIDE 0.9% 250ML IV NR (16:45)
[2019-03-27] MEDS ORDERED: SODIUM CHLORIDE 0.9% 1000ML BAG (SEPSIS BOLUS) IV ONE (16:45)
[2019-03-28] VITALS (7 sets, daily range): BP systolic 100–118; BP diastolic 16–42
[2019-03-28 06:37] LABS: BASOPHILS % 0.3 % (0.0-2.0); EOSINOPHILS % 0.4 % (0.0-5.0); HEMATOCRIT. 21.2 % (42.0-52.0); LYMPHOCYTES % 9.8 % (20.0-50.0); MEAN CORPUSCULAR HEMOGLOBIN 29.7 pg (28.0-32.0); MEAN CORPUSCULAR VOLUME 89.5 fL (80.0-94.0); MEAN PLATELET VOLUME 7.9 fl (7.4-10.4); MONOCYTES % 5.6 % (2.0-8.0); NEUTROPHILS % 83.9 % (40.0-76.0); PLATELET 196 x1000/uL (130-400); RED BLOOD CELL COUNT 2.37 mill/uL (4.7-6.1); RED CELL DISTRIBUTION WIDTH 16.9 % (11.6-14.6)
[2019-03-28] MEDS: BLOOD SUGAR DIAGNOSTIC STRIP TEST SCH ×3 (06:39→21:34)
[2019-03-28] MEDS: INSULIN LISPRO 100 UNITS/ML SUBCUT SCH ×3 (07:50→21:00)
[2019-03-28] MEDS ORDERED: SODIUM CHLORIDE 0.9% 500 ML IV ONE (08:45)
[2019-03-28] MEDS: CITRIC ACID/SODIUM CITRATE SOLN 30ML UDC PO SCH ×3 (09:05→18:10)
[2019-03-28] MEDS: SEVELAMER CARBONATE 800 MG TABLET PO SCH ×3 (09:06→18:10)
[2019-03-28] MEDS: INSULIN GLARGINE UD 100 UNITS/ML SYR SUBCUT SCH ×2 (09:12→21:37)
[2019-03-29] VITALS: BP 113/22
[2019-03-29 04:10] VITALS: BP 111/28
[2019-03-29] MEDS: BLOOD SUGAR DIAGNOSTIC STRIP TEST SCH ×4 (06:30→21:00)
[2019-03-29] MEDS: LEVOFLOXACIN 250MG TABLET PO SCH (06:30)
[2019-03-29 08:00] VITALS: BP 133/50
[2019-03-29] MEDS: INSULIN LISPRO 100 UNITS/ML SUBCUT SCH ×4 (08:59→21:00)
[2019-03-29] MEDS: CITRIC ACID/SODIUM CITRATE SOLN 30ML UDC PO SCH ×3 (10:30→16:32)
[2019-03-29] MEDS: SEVELAMER CARBONATE 800 MG TABLET PO SCH ×3 (10:30→16:32)
[2019-03-29] MEDS: INSULIN GLARGINE UD 100 UNITS/ML SYR SUBCUT SCH ×2 (10:31→21:53)
[2019-03-29 12:00] VITALS: BP 129/31
[2019-03-29 15:41] VITALS: BP 136/30
[2019-03-29] MEDS: ACETAMINOPHEN 325MG TABLET PO PRN (17:25)
[2019-03-29 20:00] VITALS: BP 103/26
[2019-03-29 20:03] LABS: BASOPHILS % 0.5 % (0.0-2.0); EOSINOPHILS % 0.6 % (0.0-5.0); HEMATOCRIT. 21.9 % (42.0-52.0); HEMOGLOBIN. 7.1 g/dL (14.0-18.0); LYMPHOCYTES % 12.2 % (20.0-50.0); MEAN CORPUSCULAR HEMOGLOBIN 29.9 pg (28.0-32.0); MEAN PLATELET VOLUME 8.4 fl (7.4-10.4); MONOCYTES % 6.7 % (2.0-8.0); PLATELET 188 x1000/uL (130-400); RED BLOOD CELL COUNT 2.38 mill/uL (4.7-6.1); RED CELL DISTRIBUTION WIDTH 17.9 % (11.6-14.6)
[2019-03-29] MEDS ORDERED: EPOETIN ALFA 10000UNITS/ML VIAL SUBCUT SCH (21:00)
[2019-03-30] VITALS: BP 142/30
[2019-03-30 04:00] VITALS: BP 128/24
[2019-03-30] MEDS: BLOOD SUGAR DIAGNOSTIC STRIP TEST SCH ×3 (07:20→17:20)
[2019-03-30] MEDS: INSULIN LISPRO 100 UNITS/ML SUBCUT SCH ×3 (07:50→17:50)
[2019-03-30 08:35] VITALS: BP 123/53
[2019-03-30] MEDS: SEVELAMER CARBONATE 800 MG TABLET PO SCH ×3 (09:17→17:00)
[2019-03-30] MEDS: CITRIC ACID/SODIUM CITRATE SOLN 30ML UDC PO SCH ×3 (09:17→17:00)
[2019-03-30 12:24] VITALS: BP 121/28
[2019-03-30] MEDS: INSULIN GLARGINE UD 100 UNITS/ML SYR SUBCUT SCH (13:28)
[2019-03-30 18:48] VITALS: BP 141/78
== END 2019-03-30 19:45 | disposition home or self-care (01) | DRG 951 ==
LOC: ER 10:25 → 7WST 15:12 → ENRESERV 21:29 → 6WST 03-23 19:01
PROVIDERS: ADMIT Internal Medicine; ATTEND Internal Medicine
PROC: 0JH63XZ Insertion of Tunneled Vascular Access Device into Chest Subcutaneous Tissue and Fascia, Percutaneous Approach (ICD-10-PCS; 2019-03-13)
PROC: 06H033Z Insertion of Infusion Device into Inferior Vena Cava, Percutaneous Approach (ICD-10-PCS; 2019-03-13)
PROC: B5191ZA Fluoroscopy of Inferior Vena Cava using Low Osmolar Contrast, Guidance (ICD-10-PCS; 2019-03-13)
PROC: 5A1D70Z Performance of Urinary Filtration, Intermittent, Less than 6 Hours Per Day (ICD-10-PCS; 2019-03-13)
PROC: 5A1D70Z Performance of Urinary Filtration, Intermittent, Less than 6 Hours Per Day (ICD-10-PCS; 2019-03-14)
PROC: B5191ZZ Fluoroscopy of Inferior Vena Cava using Low Osmolar Contrast (ICD-10-PCS; 2019-03-15)
PROC: B54MZZZ Ultrasonography of Right Upper Extremity Veins (ICD-10-PCS; 2019-03-15)
PROC: 5A1D70Z Performance of Urinary Filtration, Intermittent, Less than 6 Hours Per Day (ICD-10-PCS; 2019-03-15)
PROC: 5A1D70Z Performance of Urinary Filtration, Intermittent, Less than 6 Hours Per Day (ICD-10-PCS; 2019-03-16)
PROC: 5A1D70Z Performance of Urinary Filtration, Intermittent, Less than 6 Hours Per Day (ICD-10-PCS; 2019-03-18)
PROC: 5A1D70Z Performance of Urinary Filtration, Intermittent, Less than 6 Hours Per Day (ICD-10-PCS; 2019-03-19)
PROC: 0WPG03Z Removal of Infusion Device from Peritoneal Cavity, Open Approach (ICD-10-PCS; principal; 2019-03-22)
PROC: B54MZZZ Ultrasonography of Right Upper Extremity Veins (ICD-10-PCS; 2019-03-23)
PROC: B54MZZZ Ultrasonography of Right Upper Extremity Veins (ICD-10-PCS; 2019-03-23)
PROC: B54NZZZ Ultrasonography of Left Upper Extremity Veins (ICD-10-PCS; 2019-03-23)
PROC: 5A1D70Z Performance of Urinary Filtration, Intermittent, Less than 6 Hours Per Day (ICD-10-PCS; 2019-03-23)
PROC: 5A1D70Z Performance of Urinary Filtration, Intermittent, Less than 6 Hours Per Day (ICD-10-PCS; 2019-03-25)
PROC: 5A1D70Z Performance of Urinary Filtration, Intermittent, Less than 6 Hours Per Day (ICD-10-PCS; 2019-03-26)
PROC: 0JH63XZ Insertion of Tunneled Vascular Access Device into Chest Subcutaneous Tissue and Fascia, Percutaneous Approach (ICD-10-PCS; 2019-03-27)
PROC: 02H633Z Insertion of Infusion Device into Right Atrium, Percutaneous Approach (ICD-10-PCS; 2019-03-27)
PROC: B5191ZZ Fluoroscopy of Inferior Vena Cava using Low Osmolar Contrast (ICD-10-PCS; 2019-03-27)
PROC: B5181ZZ Fluoroscopy of Superior Vena Cava using Low Osmolar Contrast (ICD-10-PCS; 2019-03-27)
PROC: 5A1D70Z Performance of Urinary Filtration, Intermittent, Less than 6 Hours Per Day (ICD-10-PCS; 2019-03-27)
PROC: 5A1D70Z Performance of Urinary Filtration, Intermittent, Less than 6 Hours Per Day (ICD-10-PCS; 2019-03-28)
PROC: 5A1D70Z Performance of Urinary Filtration, Intermittent, Less than 6 Hours Per Day (ICD-10-PCS; 2019-03-29)
DX: T85.71XA Infection and inflammatory reaction due to peritoneal dialysis catheter, initial encounter (principal); A41.53 Sepsis due to Serratia; K65.9 Peritonitis, unspecified; E11.21 Type 2 diabetes mellitus with diabetic nephropathy; E11.40 Type 2 diabetes mellitus with diabetic neuropathy, unspecified; I13.11 Hypertensive heart and chronic kidney disease without heart failure, with stage 5 chronic kidney disease, or end stage renal disease; T82.41XA Breakdown (mechanical) of vascular dialysis catheter, initial encounter; T82.868A Thrombosis due to vascular prosthetic devices, implants and grafts, initial encounter; T82.42XA Displacement of vascular dialysis catheter, initial encounter; E78.00 Pure hypercholesterolemia, unspecified; E11.22 Type 2 diabetes mellitus with diabetic chronic kidney disease; E11.51 Type 2 diabetes mellitus with diabetic peripheral angiopathy without gangrene; N18.6 End stage renal disease; K76.1 Chronic passive congestion of liver; E83.41 Hypermagnesemia; E87.5 Hyperkalemia; E87.70 Fluid overload, unspecified; B96.89 Other specified bacterial agents as the cause of diseases classified elsewhere; D63.1 Anemia in chronic kidney disease; Y71.2 Prosthetic and other implants, materials and accessory cardiovascular devices associated with adverse incidents; E83.39 Other disorders of phosphorus metabolism; E78.5 Hyperlipidemia, unspecified; Z79.4 Long term (current) use of insulin; Y92.89 Other specified places as the place of occurrence of the external cause; Z88.1 Allergy status to other antibiotic agents; Z89.512 Acquired absence of left leg below knee; Z99.2 Dependence on renal dialysis; Z89.421 Acquired absence of other right toe(s)
CPT/HCPCS: 36005; 36415; 36558; 36569; 36581; 36589; 71045; 74176; 75822; 75825; 75827; 76937; 77001; 80048; 80061; 80170; 82550; 82553; 82962; 83036; 83605; 83735; 84100; 84145; 84443; 86850; 86900; 87070; 87075; 87077; 87186; 88300; 93005; 93970; 96374; 96375; 97162; 99152; 99153; 99285; C1725; C1750; C1766; C1769; C1887; C1893; J0610; J0690; J0692; J0696; J0885; J1100; J1580; J1642; J1644; J1815; J1940; J1956; J2250; J2405; J2704; J2997; J3010; J3490; J7040; J7050; J7060; Q9967; G0500

== ENCOUNTER 2019-06-19 13:25 | Inpatient (IN) | payer MEDICAID ==
[~2019-06-19] VITALS: Ht 165.1 cm; Wt 68.3 kg
[2019-06-19 15:52] LABS: BASOPHILS % 1.3 % (0.0-2.0); EOSINOPHILS % 3.2 % (0.0-5.0); HEMATOCRIT. 40.3 % (42.0-52.0); HEMOGLOBIN. 13.3 g/dL (14.0-18.0); LYMPHOCYTES % 22.7 % (20.0-50.0); MEAN CORPUSCULAR HEMOGLOBIN 29.9 pg (28.0-32.0); MEAN CORPUSCULAR VOLUME 90.9 fL (80.0-94.0); MEAN PLATELET VOLUME 8.4 fl (7.4-10.4); MONOCYTES % 6.5 % (2.0-8.0); NEUTROPHILS % 66.3 % (40.0-76.0); PLATELET 146 x1000/uL (130-400); RED BLOOD CELL COUNT 4.44 mill/uL (4.7-6.1); RED CELL DISTRIBUTION WIDTH 15.6 % (11.6-14.6)
[2019-06-19 15:57] LABS: PROTHROMBIN TIME 10.2 sec (9.6-11.0)
[2019-06-19] MEDS ORDERED: DOCUSATE SODIUM 100MG CAPSULE PO PRN (17:45)
[2019-06-19] MEDS ORDERED: ACETAMINOPHEN 325MG TABLET PO PRN (17:45)
[2019-06-19] MEDS ORDERED: MAGNESIUM/ALUMINUM HYDROXIDE/SIMETHICONE 30ML UDC PO PRN (17:45)
[2019-06-19] MEDS ORDERED: HYDROCODONE/ACETAMINOPHEN 5/325MG TABLET PO PRN (17:45)
[2019-06-19] MEDS ORDERED: CLONIDINE 0.1MG TABLET PO PRN (17:45)
[2019-06-19] MEDS ORDERED: ONDANSETRON HCL 4MG/2ML INJ IV PRN (17:45)
[2019-06-19] MEDS ORDERED: GUAIFENESIN 200MG/10ML SUGAR FREE UDC PO PRN (17:45)
[2019-06-19] MEDS ORDERED: IPRATROPIUM/ALBUTEROL 0.5-3(2.5)MG/3ML NEB INH PRN (17:45)
[2019-06-19] MEDS ORDERED: DIPHENHYDRAMINE 50MG/ML VIAL IV PRN (17:45)
[2019-06-19 18:13] LABS: PHOSPHORUS 5.4 mg/dL (2.5-4.9)
[2019-06-19 22:44] VITALS: BP 141/31
[2019-06-19] MEDS ORDERED: DEXTROSE 50% WATER 50ML SYRINGE IV PRN (23:30)
[2019-06-20] VITALS (17 sets, daily range): BP systolic 112–188; BP diastolic 22–69
[2019-06-20] MEDS: BLOOD SUGAR DIAGNOSTIC STRIP TEST SCH ×4 (06:37→20:38)
[2019-06-20 06:48] LABS: BASOPHILS % 0.9 % (0.0-2.0); EOSINOPHILS % 4.4 % (0.0-5.0); HEMATOCRIT. 39.8 % (42.0-52.0); HEMOGLOBIN. 13.4 g/dL (14.0-18.0); LYMPHOCYTES % 24.3 % (20.0-50.0); MEAN CORPUSCULAR HEMOGLOBIN 30.3 pg (28.0-32.0); MEAN CORPUSCULAR VOLUME 90.1 fL (80.0-94.0); MEAN PLATELET VOLUME 8.6 fl (7.4-10.4); MONOCYTES % 7.3 % (2.0-8.0); NEUTROPHILS % 63.1 % (40.0-76.0); PLATELET 130 x1000/uL (130-400); RED BLOOD CELL COUNT 4.42 mill/uL (4.7-6.1); RED CELL DISTRIBUTION WIDTH 15.7 % (11.6-14.6)
[2019-06-20 07:32] LABS: CHLORIDE 103 mEq/L (98-107)
[2019-06-20 07:42] LABS: HDL CHOLESTEROL 46 mg/dL (40-59); LDL CHOLESTEROL 40 mg/dL (5-100)
[2019-06-20] MEDS: INSULIN LISPRO 100 UNITS/ML SUBCUT SCH ×4 (07:50→20:38)
[2019-06-20] MEDS ORDERED: CEFAZOLIN 1000MG PREMIX 50 ML IV SCH (12:30)
[2019-06-20] MEDS ORDERED: SODIUM BICARBONATE 4% (2.4MEQ) 5ML VIAL IV ONE (12:54)
[2019-06-20] MEDS ORDERED: HEPARIN 1000 UNITS/ML 10ML ONE (12:54)
[2019-06-20] MEDS ORDERED: CEFAZOLIN 1000MG PREMIX 50 ML IV ONE (12:54)
[2019-06-20] MEDS ORDERED: FENTANYL CITRATE/PF 50MCG/ML 2ML VIAL ONE (12:54)
[2019-06-20] MEDS ORDERED: LIDOCAINE HCL 1% 20ML VIAL (Pyxis) INJ ONE (12:55)
[2019-06-20] MEDS ORDERED: IOHEXOL-300 50 ML BOTTLE IV ONE (13:36)
[2019-06-20] MEDS ORDERED: FENTANYL CITRATE/PF 50MCG/ML 2ML VIAL IV ONE (13:45)
[2019-06-21] VITALS: BP 107/32
[2019-06-21 04:00] VITALS: BP 125/34
[2019-06-21] MEDS: BLOOD SUGAR DIAGNOSTIC STRIP TEST SCH ×3 (06:28→17:27)
[2019-06-21] MEDS: INSULIN LISPRO 100 UNITS/ML SUBCUT SCH ×3 (07:41→17:27)
[2019-06-21 08:00] VITALS: BP 154/23
[2019-06-21] MEDS ORDERED: ENOXAPARIN 30MG/0.3ML SYR SUBCUT SCH (09:00)
[2019-06-21 12:00] VITALS: BP 112/31
[2019-06-21 16:00] VITALS: BP 156/30
[2019-06-21 17:36] VITALS: BP 156/30
== END 2019-06-21 18:48 | disposition home or self-care (01) | DRG 466 ==
LOC: ER 13:25 → EDBEDREQ 16:01 → 6WST 17:24 → EDBEDREQ 17:27 → ENRESERV 20:31
PROVIDERS: ADMIT Internal Medicine; ATTEND Internal Medicine
PROC: 0J2TXYZ Change Other Device in Trunk Subcutaneous Tissue and Fascia, External Approach (ICD-10-PCS; principal; 2019-06-20)
DX: T82.41XA Breakdown (mechanical) of vascular dialysis catheter, initial encounter (principal); I12.0 Hypertensive chronic kidney disease with stage 5 chronic kidney disease or end stage renal disease; E11.22 Type 2 diabetes mellitus with diabetic chronic kidney disease; D64.9 Anemia, unspecified; E87.5 Hyperkalemia; N18.6 End stage renal disease
CPT/HCPCS: 36010; 36415; 36581; 75827; 77001; 80048; 80061; 82962; 83735; 84100; 84443; 93970; 96365; 99285; C1725; C1769; J0690; J1644; J1650; J1815; J3010; J3490; Q9967

== ENCOUNTER 2020-05-21 22:20 | Inpatient (IN) | payer MEDICAID ==
[~2020-05-21] VITALS: Ht 165.1 cm; Wt 61.7 kg
[~2020-05-21 22:20] MED LIST changes: -BENA20TA10 PO; -CALC-25 PO
[2020-05-21 23:32] LABS: BASOPHILS % 0.9 % (0.0-2.0); EOSINOPHILS % 2.7 % (0.0-5.0); HEMATOCRIT. 37.2 % (42.0-52.0); HEMOGLOBIN. 12.3 g/dL (14.0-18.0); MEAN CORPUSCULAR HEMOGLOBIN 30.5 pg (28.0-32.0); MEAN CORPUSCULAR VOLUME 92.3 fL (80.0-94.0); MEAN PLATELET VOLUME 7.6 fl (7.4-10.4); MONOCYTES % 5.7 % (2.0-8.0); NEUTROPHILS % 78.7 % (40.0-76.0); PLATELET 210 x1000/uL (130-400); RED BLOOD CELL COUNT 4.03 mill/uL (4.7-6.1); RED CELL DISTRIBUTION WIDTH 15.7 % (11.6-14.6)
[2020-05-21 23:42] LABS: PROTHROMBIN TIME 10.6 sec (9.6-11.0)
[2020-05-22] VITALS (16 sets, daily range): BP systolic 86–157; BP diastolic 34–70
[2020-05-22] MEDS ORDERED: DEXTROSE 50% WATER 50ML SYRINGE IV NR (03:00)
[2020-05-22] MEDS ORDERED: SODIUM BICARBONATE 8.4% 1 MEQ/ML 50ML SYR IV NR (03:00)
[2020-05-22] MEDS ORDERED: INSULIN REGULAR (HUMULIN R) 300UNITS/3ML IV NR (03:00)
[2020-05-22] MEDS ORDERED: DEXTROSE 50% WATER 50ML SYRINGE IV PRN (08:15)
[2020-05-22] MEDS: INSULIN LISPRO 100 UNITS/ML SUBCUT SCH ×4 (08:20→21:18)
[2020-05-22] MEDS: BLOOD SUGAR DIAGNOSTIC STRIP TEST SCH ×3 (08:23→20:37)
[2020-05-22] MEDS ORDERED: CEFAZOLIN 1000MG PREMIX 50 ML IV ONE (09:53)
[2020-05-22] MEDS ORDERED: SODIUM BICARBONATE 4% (2.4MEQ) 5ML VIAL IV ONE (10:01)
[2020-05-22] MEDS ORDERED: LIDOCAINE HCL 1% 20ML VIAL (Pyxis) INJ ONE (10:01)
[2020-05-22] MEDS ORDERED: IOHEXOL-300 100 ML BOTTLE ONE (10:10)
[2020-05-22] MEDS ORDERED: FENTANYL CITRATE/PF 50MCG/ML 2ML VIAL ONE (10:18)
[2020-05-22] MEDS ORDERED: ONDANSETRON HCL 4MG/2ML INJ IV PRN (10:30)
[2020-05-22] MEDS ORDERED: ACETAMINOPHEN 325MG TABLET PO PRN (10:30)
[2020-05-22] MEDS ORDERED: CEFAZOLIN 1000MG PREMIX 50 ML IV NR (11:00)
[2020-05-22] MEDS ORDERED: FENTANYL CITRATE/PF 50MCG/ML 2ML VIAL IV ONE (11:15)
[2020-05-22] MEDS: FOLIC ACID/VITAMIN B COMP W-C TABLET PO SCH (11:35)
[2020-05-22] MEDS ORDERED: SODIUM POLYSTYRENE SULFONATE 15 G/60 ML BOT PO NR (15:00)
[2020-05-23] VITALS: BP 86/25
[2020-05-23 04:00] VITALS: BP 112/34
[2020-05-23] MEDS: BLOOD SUGAR DIAGNOSTIC STRIP TEST SCH (07:20)
[2020-05-23] MEDS: INSULIN LISPRO 100 UNITS/ML SUBCUT SCH (07:50)
[2020-05-23 08:07] VITALS: BP 123/34
[2020-05-23 08:54] LABS: BASOPHILS % 1.1 % (0.0-2.0); EOSINOPHILS % 3.7 % (0.0-5.0); HEMATOCRIT. 33.7 % (42.0-52.0); HEMOGLOBIN. 11.5 g/dL (14.0-18.0); LYMPHOCYTES % 19.4 % (20.0-50.0); MEAN CORPUSCULAR HEMOGLOBIN 30.9 pg (28.0-32.0); MEAN CORPUSCULAR VOLUME 90.7 fL (80.0-94.0); MEAN PLATELET VOLUME 7.4 fl (7.4-10.4); MONOCYTES % 6.1 % (2.0-8.0); NEUTROPHILS % 69.7 % (40.0-76.0); PLATELET 235 x1000/uL (130-400); RED BLOOD CELL COUNT 3.72 mill/uL (4.7-6.1); RED CELL DISTRIBUTION WIDTH 15.7 % (11.6-14.6)
[2020-05-23] MEDS: FOLIC ACID/VITAMIN B COMP W-C TABLET PO SCH (08:57)
[2020-05-23] MEDS ORDERED: SODIUM POLYSTYRENE SULFONATE 15 G/60 ML BOT PO NR (10:00)
[2020-05-23 10:58] VITALS: BP 123/60
[2020-05-23 12:06] VITALS: BP 112/37
== END 2020-05-23 12:07 | disposition home or self-care (01) | DRG 466 ==
LOC: ER 22:20 → 6WST 05-22 04:59 → ENRESERV 05-22 14:05 → ER 05-22 15:36
PROVIDERS: ADMIT Internal Medicine; ATTEND Internal Medicine
PROC: B5151ZZ Fluoroscopy of Bilateral Jugular Veins using Low Osmolar Contrast (ICD-10-PCS; principal; 2020-05-22)
PROC: B5171ZA Fluoroscopy of Left Subclavian Vein using Low Osmolar Contrast, Guidance (ICD-10-PCS; 2020-05-22)
DX: T82.42XA Displacement of vascular dialysis catheter, initial encounter (principal); Y84.1 Kidney dialysis as the cause of abnormal reaction of the patient, or of later complication, without mention of misadventure at the time of the procedure; E87.5 Hyperkalemia; N18.6 End stage renal disease; E11.51 Type 2 diabetes mellitus with diabetic peripheral angiopathy without gangrene; I12.0 Hypertensive chronic kidney disease with stage 5 chronic kidney disease or end stage renal disease; E87.1 Hypo-osmolality and hyponatremia; E78.5 Hyperlipidemia, unspecified; E87.8 Other disorders of electrolyte and fluid balance, not elsewhere classified; E11.22 Type 2 diabetes mellitus with diabetic chronic kidney disease; E21.3 Hyperparathyroidism, unspecified; I95.9 Hypotension, unspecified; D63.8 Anemia in other chronic diseases classified elsewhere; D72.819 Decreased white blood cell count, unspecified; Z88.1 Allergy status to other antibiotic agents; Y92.89 Other specified places as the place of occurrence of the external cause
CPT/HCPCS: 36010; 36415; 71045; 75827; 76937; 80048; 82962; 83036; 85025; 99285; J0690; J1642; J1815; J3010; J3490; Q9967